=== PATIENT | male | born 1985 | race African-American/Black ===

== ENCOUNTER 2016-07-27 22:54 | Emergency (ER) | payer MEDICARE, OTHER ==
[~2016-07-27] VITALS: Ht 182.9 cm; Wt 73.0 kg
[~2016-07-27 22:54] MED LIST: RISP1TAB54 PO; SERO100T PO; SERT50 PO; ZOLO25TA PO
[2016-07-27 22:57] VITALS: BP 133/89; PULSE 76; RESP 16; TEMP 98.3; O2SAT 100
[2016-07-28] MEDS ORDERED: SERO100T PO (03:55)
[2016-07-28] MEDS ORDERED: RISP1TAB2 PO (03:55)
[2016-07-28] MEDS ORDERED: ZOLO50TA PO (03:55)
[2016-07-28 03:56] VITALS: BP 130/80; PULSE 58; RESP 16; O2SAT 100
[2016-07-28 06:17] LABS: AUTOMATED NEUTROPHIL # 2.6 TH/MM3 (1.8-7.7); BASOPHIL % 0.2 % (0.0-2.0); EOSINOPHIL % 0.6 % (0.0-4.0); HEMATOCRIT 38.3 % (39.0-51.0); LYMPH % 49.8 % (9.0-44.0); LYMPHOCYTE # 3.2 TH/MM3 (1.0-4.8); MEAN CELL VOLUME 83.7 FL (80.0-100.0); MEAN CORPUSCULAR HEMOGLOBIN 26.4 PG (27.0-34.0); MEAN CORPUSCULAR HGB CONC 31.5 % (32.0-36.0); MONO % 10.2 % (0.0-8.0); NEUT % 39.2 % (16.0-70.0); PLATELET COUNT 168 TH/MM3 (150-450); RED BLOOD COUNT 4.58 MIL/MM3 (4.50-5.90); RED CELL DISTRIBUTION WIDTH 13.6 % (11.6-17.2); WHITE BLOOD COUNT 6.5 TH/MM3 (4.0-11.0)
[2016-07-28 06:24] LABS: AMPHETAMINE, URINE NEG (NEG); BARBITURATES, URINE NEG (NEG); COCAINE, URINE NEG (NEG)
--- NOTE | 2016-07-28 06:33 | PD ---
HPI Chief Complaint: Psychiatric Symptoms Time Seen by Provider: 03:47 Travel History International Travel<30 days: No Contact w/Intl Traveler<30days: No Traveled to known affect area: No History of Present Illness HPI The patient's 30 years old. He arrives to the ER voluntarily while feeling intent to harm her friend. He is quite vague about the person he intends to harm however states he no longer has intent to harm. He denies suicidal ideations however he drinks bleach she's had about 5-6 ounces of bleach tonight. He states he drank bleach fairly routinely and has done thirst throughout his life. He has no abdominal pain. He also asked that I prescribe to the patient Adderall. [facility] Past Medical History Anxiety: Yes Depression: Yes Diminished Hearing: No Endocrine: No Gastrointestinal Disorders: Yes Genitourinary: No Hypertension: Yes Immune Disorder: No Musculoskeletal: Yes Neurologic: Yes Psychiatric: Yes (patient reports previous diagnosis of Schizophrenai and BiPolar Disorder) Reproductive: No Respiratory: No Tetanus Vaccination: Unknown Influenza Vaccination: Yes Past Surgical History Surgical History: No Previous Surgery Social History Alcohol Use: Yes ([facility]) Tobacco Use: No Substance Use: No Allergies-Medications (Allergen,Severity, Reaction): Coded Allergies: No Known Allergies (Verified , 07/28/16) Reported Meds & Prescriptions Reported Meds & Active Scripts Active Reported Zoloft (Sertraline HCl) 50 Mg Tab 50 Mg PO DAILY Risperidone 1 Mg Tab 1 Mg PO Q12HR Seroquel (Quetiapine Fumarate) 100 Mg Tab 100 Mg PO DAILY Review of Systems Except as stated in HPI: all other systems reviewed are Neg Physical Exam Narrative GENERAL: 30-year-old male pleasant no acute distress SKIN: Warm and dry. HEAD: Atraumatic. Normocephalic. EYES: Pupils equal and round. No scleral icterus. No injection or drainage. ENT: No nasal bleeding or discharge. Mucous membranes pink and moist. NECK: Trachea midline. No JVD. CARDIOVASCULAR: Regular rate and rhythm. No murmur appreciated. RESPIRATORY: No accessory muscle use. Clear to auscultation. Breath sounds equal bilaterally. GASTROINTESTINAL: Abdomen soft, non-tender, nondistended. Hepatic and splenic margins not palpable. MUSCULOSKELETAL: No obvious deformities. No clubbing. No cyanosis. No edema. NEUROLOGICAL: Awake and alert. No obvious cranial nerve deficits. Motor grossly within normal limits. Normal speech. PSYCHIATRIC: The patient arrives with a half empty plastic bottle of bleach. It is household bleach. Data Data Last Documented VS Vital Signs Date Time Temp Pulse Resp B/P Pulse Ox O2 Delivery O2 Flow Rate FiO2 07/28/16 03:56 58 16 130/80 100 07/27/16 22:57 98.3 Room Air Orders Complete Blood Count With Diff (07/28/16 04:49) Comprehensive Metabolic Panel (07/28/16 04:49) Drug Screen, Random Urine (07/28/16 04:49) Alcohol (Ethanol) (07/28/16 04:49) Salicylates (Aspirin) (07/28/16 04:49) Tylenol (Acetaminophen) (07/28/16 04:49) Psych Screen (07/28/16 04:49) Labs Laboratory Tests Test 07/28/16 07/28/16 05:50 06:00 Sodium Level 142 MEQ/L Potassium Level 3.3 MEQ/L Chloride Level 107 MEQ/L Carbon Dioxide Level 27.1 MEQ/L Anion Gap 8 MEQ/L Blood Urea Nitrogen 10 MG/DL Creatinine 0.91 MG/DL Estimat Glomerular Filtration 119 ML/MIN Rate Random Glucose 84 MG/DL Calcium Level 8.8 MG/DL Total Bilirubin 1.8 MG/DL Aspartate Amino Transf 18 U/L (AST/SGOT) Alanine Aminotransferase 19 U/L (ALT/SGPT) Alkaline Phosphatase 71 U/L Total Protein 7.5 GM/DL Albumin 4.0 GM/DL Acetaminophen Level LESS THAN 2.0 MCG/ML Ethyl Alcohol Level LESS THAN 3 MG/DL Urine Opiates Screen NEG Urine Barbiturates Screen NEG Urine Amphetamines Screen NEG Urine Benzodiazepines Screen NEG Urine Cocaine Screen NEG Urine Cannabinoids Screen NEG MDM Medical Decision Making Medical Screen Exam Complete: Yes Emergency Medical Condition: Yes Medical Record Reviewed: Yes Differential Diagnosis Suicidal ideation, homicidal ideation, alkali ingestion, pneumomediastinum, esophageal ulcer Narrative Course The patient has elected to stay here voluntarily. So long as he does so we can avoid writing a Su act. Oncoming provider to follow-up CBC and disposition appropriately. The [facility] has been asked to expedite his evaluation by all means possible. Anand Funez MD Jul 28, 2016 06:33
[2016-07-28 06:39] LABS: ALT (GPT) 19 U/L (12-78); ANION GAP 8 MEQ/L (5-15); AST (GOT) 18 U/L (15-37); BICARBONATE 27.1 MEQ/L (21.0-32.0); BLOOD UREA NITROGEN 10 MG/DL (7-18); CHLORIDE 107 MEQ/L (98-107); GLOMERULAR FILTRATION RATE 119 ML/MIN (>89); POTASSIUM 3.3 MEQ/L (3.5-5.1); SODIUM (NA) 142 MEQ/L (136-145)
[2016-07-28 06:41] LABS: ALKALINE PHOSPHATASE 71 U/L (45-117); TOTAL BILIRUBIN ADULT 1.8 MG/DL (0.2-1.0)
[2016-07-28 06:45] LABS: ACETAMINOPHEN LESS THAN 2.0 MCG/ML (10.0-30.0)
[2016-07-28 07:06] LABS: HEMO FLAGS AUTO DIFF
[2016-07-28 07:07] LABS: KERATOCYTES 1+ (NORMAL); OVALOCYTES 3+ (NORMAL); PLATELET ESTIMATE SMEAR NORMAL (NORMAL); PLATELET MORPHOLOGY NORMAL (NORMAL); SCAN/DIFF AUTO DIFF CONFIRMED
[2016-07-28 09:15] VITALS: BP 127/68; PULSE 85; RESP 16; O2SAT 97
[2016-07-28 11:53] VITALS: BP 118/78; PULSE 82; RESP 16; O2SAT 98
--- NOTE | 2016-08-17 19:19 | PD ---
Data Data Orders Complete Blood Count With Diff (07/28/16 04:49) Comprehensive Metabolic Panel (07/28/16 04:49) Drug Screen, Random Urine (07/28/16 04:49) Alcohol (Ethanol) (07/28/16 04:49) Salicylates (Aspirin) (07/28/16 04:49) Tylenol (Acetaminophen) (07/28/16 04:49) Psych Screen (07/28/16 04:49) MDM Supervised Visit with CHARLIE: No Narrative Course This is a patient that was signed out to me by Dr. Funez. He reportedly ingested bleach in an attempt to harm himself and he is here voluntarily for psychiatric evaluation. Labs are all reassuring. Total bilirubin is elevated but that is consistent with the patient's baseline. Patient will be evaluated by psychiatry. I don't think he has any emergent medical needs at this point. Diagnosis Primary Impression: Adjustment reaction Patient Instructions: General Instructions, Stress (ED) Departure Forms: Tests/Procedures Additional Instruction: WE RECOMMEND FOR YOU TO [facility] YOU PRESCRIPTION AND TAKE MEDICATION PRESCRIBED. FOLOW UP WITH DR YEE. Disposition: 01 DISCHARGE HOME Condition: Stable Alexa Hutchinson MD Aug 17, 2016 19:19
== END 2016-07-28 13:16 | disposition home or self-care (01) ==
LOC: NEPE 22:54
DX: F43.20 Adjustment disorder, unspecified (principal); I10 Essential (primary) hypertension; Z87.19 Personal history of other diseases of the digestive system; Z87.39 Personal history of other diseases of the musculoskeletal system and connective tissue; Z86.69 Personal history of other diseases of the nervous system and sense organs; Z86.59 Personal history of other mental and behavioral disorders
CPT/HCPCS: 80053; 80307; 85025; 99284; G0480; 80320; 80329; G0481